=== PATIENT | female | born 1965 | race Two or more races ===

== ENCOUNTER 2022-02-25 19:20 | Emergency (ER) | payer OTHER ==
[~2022-02-25] VITALS: Ht 162.6 cm; Wt 72.6 kg
[2022-02-25] MEDS ORDERED: CATAFLAN (20:19)
[2022-02-25] MEDS ORDERED: NORFLED (20:19)
[2022-02-25] MEDS ORDERED: DICLOFENAC SODI75 MG PO (21:11)
== END 2022-02-25 21:14 | disposition home or self-care (01) ==
LOC: ER 19:20
DX: S40.012A Contusion of left shoulder, initial encounter (principal); S50.02XA Contusion of left elbow, initial encounter; S20.212A Contusion of left front wall of thorax, initial encounter; V89.9XXA Person injured in unspecified vehicle accident, initial encounter; Y93.89 Activity, other specified; Y92.89 Other specified places as the place of occurrence of the external cause; Y99.9 Unspecified external cause status

== ENCOUNTER 2022-08-17 14:00 | Emergency (ER) | payer OTHER ==
[~2022-08-17] VITALS: Ht 162.6 cm; Wt 72.6 kg
[~2022-08-17 14:00] MED LIST: CATAFLAN; DICLOFENAC SODI75 MG PO; NORFLED
[2022-08-17] MEDS ORDERED: JANUVIA50 MG PO (14:24)
== END 2022-08-17 17:31 | disposition home or self-care (01) ==
LOC: ER 14:00
DX: M79.674 Pain in right toe(s) (principal); W22.8XXA Striking against or struck by other objects, initial encounter; Y93.9 Activity, unspecified; Y92.019 Unspecified place in single-family (private) house as the place of occurrence of the external cause